=== PATIENT | male | born 1970 | race Caucasian/White ===

== ENCOUNTER 2024-01-14 05:55 | Day surgery (SDC) | payer BC, OTHER ==
[2024-01-07 12:58] VITALS: BMI 30.1
[2024-01-14] MEDS ORDERED: DEXAMETHASONE SOD PHOSPHATE 4 MG/1 ML VIAL ONE (06:59)
[2024-01-14] MEDS ORDERED: ceFAZolin SODIUM 1 GM VIAL ONE (06:59)
[2024-01-14] MEDS ORDERED: KETOROLAC TROMETHAMINE 30 MG/1 ML VIAL ONE (06:59)
[2024-01-14] MEDS ORDERED: LIDOCAINE HCL/PF 2% SDV 5ML VIAL ONE (06:59)
[2024-01-14] MEDS ORDERED: METOCLOPRAMIDE HCL INJECTION 10 MG/2 ML VIAL ONE (06:59)
[2024-01-14] MEDS ORDERED: ONDANSETRON 4 MG/2 ML VIAL ONE (06:59)
[2024-01-14] MEDS ORDERED: PROPOFOL 40 ML ONE (07:03)
[2024-01-14] MEDS ORDERED: SODIUM CHLORIDE 0.9% P/F 10 ML VIAL IJ ONE (07:04)
[2024-01-14] MEDS ORDERED: MIDAZOLAM HCL 2 MG/2 ML SINGLE DOSE VIAL ONE (07:06)
[2024-01-14] MEDS ORDERED: BUPIVACAINE HCL/PF 2.5 MG/ML - 30 ML VIAL IJ ONE (07:11)
[2024-01-14] MEDS ORDERED: ACETAMINOPHEN INJECTION 100 ML ONE (08:01)
[2024-01-14] MEDS ORDERED: ONDANSETRON 4 MG/2 ML VIAL IVPUSH PRN (08:43)
[2024-01-14] MEDS ORDERED: oxyCODONE HCL 5 MG TABLET PO PRN (08:43)
[2024-01-14] MEDS ORDERED: LACTATED RINGERS SOLUTION 1,000 ML IV SCH (08:45)
[2024-01-14 08:57] VITALS: TEMP 97.5
[2024-01-14] MEDS ORDERED: FENTANYL CITRATE/PF 50 MCG/ML VIAL ONE (09:07)
[2024-01-14 10:16] VITALS: BP 139/71; PULSE 70; RESP 18
== END 2024-01-14 10:26 | disposition home or self-care (01) ==
LOC: FASU 05:55
PROVIDERS: ATTEND Orthopaedic Surgery Sports Medicine
PROC: 0SBC4ZZ Excision of Right Knee Joint, Percutaneous Endoscopic Approach (ICD-10-PCS; principal; 2024-01-14 07:59)
DX: S83.241A Other tear of medial meniscus, current injury, right knee, initial encounter (principal); M94.261 Chondromalacia, right knee; M65.861 Other synovitis and tenosynovitis, right lower leg; X58.XXXA Exposure to other specified factors, initial encounter; Y93.9 Activity, unspecified; Y92.9 Unspecified place or not applicable
CPT/HCPCS: 94760; J0131